=== PATIENT | female | born 2000 | race Caucasian/White ===

== ENCOUNTER 2018-01-09 20:37 | Emergency (ER) | payer OTHER ==
[2018-01-09 21:05] LABS: #Eosinphils 0.1 thou/uL (0.0-0.7); #Lymphocytes 1.8 thou/uL (1.20-3.40); #Monocytes 1.6 thou/uL (0.11-0.59); #Neutrophils 14.6 thou/uL (1.40-6.50); %Basophils 0.1 % (0.0-1.0); %Eosinophils 0.3 % (0.0-10.0); %Lymphocytes 9.9 % (28.0-48.0); %Neutrophils 80.7 % (31.0-61.0); Mean Corpuscular HGB CONC 34.3 g/dL (32.0-36.0); Mean Corpuscular Hemoglobin 29.5 pg (25.0-35.0); Mean Platelet Volume 7.7 fL (7.4-10.4); Platelet Count 246 thou/uL (130-400); RBC Distribution Width 12.1 % (11.5-14.5); Red Blood Cell (RBC) Count 4.41 mill/uL (4.00-5.20); White Blood Cell (WBC) Count 18.1 thou/uL (4.8-10.8)
[2018-01-09 21:17] LABS: BHCG - Serum Negative (NEGATIVE); Pregs Control Background? CLEAR/WHITE (CLR/WHITE); Pregs Control Bar Appear? YES (CONTROL BAR)
[2018-01-09 21:25] LABS: ALT (SGPT) 18 U/L (8-55); AST (SGOT) 14 U/L (5-30); Albumin 4.6 g/dL (3.5-5.0); Alkaline Phosphatase 80 U/L (40-150); Anion Gap 18 mmol/L (10-20); BUN (Urea Nitrogen) 11 mg/dL (8.4-21.0); Bilirubin, Total 0.8 mg/dL (0.2-1.2); Calc. Creatinine Clearance 0 mL/min (70-130); Calcium 10.2 mg/dL (7.8-10.44); Carbon Dioxide 21 mmol/L (22-29); Chloride 101 mmol/L (98-107); Estimated GFR-MDRD 58; Globulin 4.5 g/dL (2.4-3.5); Glucose 92 mg/dL (70-105); Potassium 3.6 mmol/L (3.5-5.1); Protein, Total 9.1 g/dL (6.0-8.3); Sodium 136 mmol/L (136-145)
[2018-01-09 21:28] LABS: Bilirubin Small (Negative); Blood, Urine Large (Negative); Clarity TURBID (Clear); Glucose, Urine (Dipstick) Negative (Negative); Leukocyte Large (Negative); Nitrite Negative (Negative); Protein, Urine (Dipstick) 100 mg/dL (Neg-Trace); Specific Gravity, Urine 1.023 (1.002-1.036); Urobilinogen 0.2 mg/dL (0.2-1.0)
[2018-01-09 21:29] LABS: Bacteria/HPF 1+ HPF (None Seen); Hyaline Casts/LPF 4-6 HYALINE CAST LPF (0-3 Hyaline); Pathc Cast-AUWi Flag 1.04 (0-2.49); RBC/HPF GREATER THAN 50-TNTC HPF (0-3); Squamous Epithelial 0-3 HPF (0-3)
[2018-01-09 21:30] LABS: Yeast-AUWi Flag 35.7 (0-25.0)
[2018-01-09] MEDS ORDERED: cefTRIAXone\\ROCEPHIN 2 GM VIAL ONE (21:56)
[2018-01-09] MEDS ORDERED: Ondansetron HCl/PF 4 MG/2 ML Vial ONE (22:03)
[2018-01-09] MEDS ORDERED: Acetaminophen 500 MG TAB ONE (22:03)
[2018-01-09] MEDS ORDERED: Morphine 4 MG/ML VIAL ONE (22:04)
--- NOTE | 2018-01-09 22:35 | CT ---
ABDOMEN AND PELVIC CT SCAN WITHOUT IV CONTRAST: 01/09/18 HISTORY: 17-year-old female with history of right flank pain and lower abdominal pain and fever intermittently for up to three weeks. Lung bases are clear. The visualized liver, gallbladder, pancreas, spleen, adrenal glands, are unrema rkable as evaluated without IV contrast. There is some minimal fat stranding around the right kidney and upper right ureter. No evidence for renal calculus. No evidence for ureteral calculus. Normal maura earing appendix. There is an approximately 4.3 x 5.3 x 5.1 cm diameter right ovarian/adnexal mass whi ch does not appear to be a simple benign cyst and could represent a solid mass, enlarged right ovary or a complex hemorrhagic cyst. The bladder is nearly empty. IMPRESSION: Minimal fat stranding around the upper ureter and right kidney. The upper right ureter and right kidn ey, nonspecific. This could be related to recent stone passage or could represent findings of acute p yelonephritis. No evidence for an obstructing ureteral calculus. Right ovarian/adnexa mass/enlarged r ight ovary. Further evaluation with ultrasound in this regard is suggested. Normal appearing appendix . POS: FELIX
--- NOTE | 2018-01-09 23:34 | ULT ---
PELVIC ULTRASOUND: 01/09/18 HISTORY: Pelvic pain with nausea and fever. Uterus appears unremarkable. Endometrial stripe appears normal. There is a 4 to 5 cm cyst right ovary . Left ovary shows normal appearing follicles. No free fluid seen. Color doppler and spectral analysis shows blood flow to both ovaries. IMPRESSION: Large right adnexal cyst, probably ovarian. Recommend followup ultrasound to assess resolution. POS: AGW
--- NOTE | 2018-01-12 00:59 | EKG ---
Test Reason : SEPSIS ALERT Blood Pressure : / mmHG Vent. Rate : 115 BPM Atrial Rate : 115 BPM P-R Int : 128 ms QRS Dur : 078 ms QT Int : 328 ms P-R-T Axes : 042 047 003 degrees QTc Int : 453 ms Sinus tachycardia Confirmed by HANG MAC ([id number]), photograph editor ARTEM SOL ([id number]) on 01/12/2018 12:59:24 AM Referred By: Confirmed By:HANG MAC
== END 2018-01-09 23:45 | disposition home or self-care (01) ==
LOC: ERS 20:37
DX: N12 Tubulo-interstitial nephritis, not specified as acute or chronic (principal); N39.0 Urinary tract infection, site not specified; Z79.899 Other long term (current) drug therapy
CPT/HCPCS: 36415; 74176; 76856; 80053; 81003; 81015; 83605; 84703; 85025; 86850; 86900; 86901; 87040; 87077; 87086; 87186; 93005; 96361; 96365; 96374; 96375; J0696; J2270; J2405

== ENCOUNTER 2018-01-10 17:37 | Inpatient (IN) | payer OTHER ==
[2018-01-10] MEDS ORDERED: Acetaminophen 500 MG TAB ONE (17:47)
[2018-01-10 18:20] LABS: Mean Corpuscular HGB CONC 33.4 g/dL (32.0-36.0); Mean Corpuscular Volume 86.6 fl (77.0-87.0); Mean Platelet Volume 7.9 fL (7.4-10.4); Platelet Count 215 thou/uL (130-400); RBC Distribution Width 12.3 % (11.5-14.5); Red Blood Cell (RBC) Count 4.15 mill/uL (4.00-5.20); White Blood Cell (WBC) Count 15.4 thou/uL (4.8-10.8)
[2018-01-10 18:33] LABS: ALT (SGPT) 19 U/L (8-55); AST (SGOT) 17 U/L (5-30); Alkaline Phosphatase 91 U/L (40-150); Anion Gap 14 mmol/L (10-20); BUN (Urea Nitrogen) 8 mg/dL (8.4-21.0); Bilirubin, Total 0.5 mg/dL (0.2-1.2); Calc. Creatinine Clearance 0 mL/min (70-130); Calcium 9.6 mg/dL (7.8-10.44); Carbon Dioxide 19 mmol/L (22-29); Chloride 105 mmol/L (98-107); Estimated GFR-MDRD 75; Glucose 132 mg/dL (70-105); Lipase 9 U/L (8-78); Potassium 3.8 mmol/L (3.5-5.1); Sodium 134 mmol/L (136-145)
[2018-01-10 18:35] LABS: Band 34 % (5-11); Lymphocytes 5 % (28-48); MDiff Complete? YES; Metamyelocyte 1 % (0-0); Monocytes 3 % (0-4); Neutrophil 55 % (31-61); PLT Morphology Comment Appears Adequate; RBC Morphology Normal; Reactive Lymphocytes 1 % (0-10); Vacuoles SLIGHT
[2018-01-10] MEDS ORDERED: cefTRIAXone\\ROCEPHIN 2 GM VIAL ONE (19:09)
[2018-01-10] MEDS ORDERED: Sodium Chloride 0.9% 100 ML ONE (19:09)
[2018-01-10] MEDS ORDERED: Gentamicin Sulfate 330 MG in Sodium Chloride 0.9% 100 ML IVPB SCH (19:30)
--- NOTE | 2018-01-10 19:56 | PDOC.FPRHP ---
- History of Present Illness Chief Complaint: fever History of Present Illness: Patient comes in for evaluation of fever. She was seen in the ED yesterday and diagnosed with pyelonephritis. She received rocephin in the Ed and was sent home on cipro. She was only able to keep one dose of the cipro down because of N /V. She comes back into the ED today because of a fever this afternoon of 104 and persistent back pain. She states the back pain has been getting progressively worse for the past 3-4 weeks, described as a stabbing pain with occassional dull ache radiating to the abdomen. She had a fever of 104 4 days ago and was not seen until yesterday in the ED. She states she has not been able to keep foods down for the past 4 days but is usually able to keep fluids down. She is having burning with urination, no blood in the urine. She has tried tylenol/ibuprofen at home. Associated symptoms: ache all over, headache described as pressure throughout the head, chest heaviness for the last hour or so in the ED, R sided chest pain with deep breath. ED Course: Vanc, rocephin, Gentamicin NS bolus x2 - Allergies/Adverse Reactions Allergies Allergy/AdvReac Type Severity Reaction Status Date / Time amoxicillin Allergy Verified 01/09/18 21:53 codeine Allergy Verified 01/09/18 21:53 - Home Medications Medication Instructions Recorded Confirmed Type Acetaminophen [Tylenol] 650 mg PO Q4HR PRN 01/11/18 01/11/18 History Comments: no home meds - History PMHx: none PSHx: T&A FHx: ? breast cancer in mother Social: no smoking, alcohol, or drugs - Review of Systems General: reports: fever/chills, weight/appetite/sleep changes, night sweats, fatigue Eyes: denies: eye pain, vision changes ENT: denies: nasal congestion, rhinorrhea Respiratory: reports: shortness of breath. denies: cough, congestion Cardiovascular: reports: chest pain. denies: palpitation, edema, orthopnea Gastrointestinal: reports: nausea, vomiting. denies: diarrhea, constipation, abdominal pain, GI bleeding Genitourinary: reports: dysuria. denies: polyuria Skin: denies: rashes, lesions Musculoskeletal: reports: arthritis/arthralgias. denies: pain Neurological: denies: numbness, weakness Psychological: denies: anxiety, depression - Vital signs BP: 104/68-> 83/47 HR: 138-> 106 RR: 22 Tmax: 103.0 Pox: 98% on RA Wt: 81.65 - Physical Exam Constitutional: NAD, awake, alert and oriented, well developed HEENT: normocephalic and atraumatic, PERRLA, EOMI, conjunctiva clear, MMM Neck: supple, FROM Chest: no-tender to palpation Heart: RRR, normal S1/S2, no murmurs/rubs/gallops, pulses present, no edema Lungs: CTAB, no respiratory distress, good air movement Abdomen: soft, non-tender, bowel sounds present, no masses/distention Musculoskeletal: normal structure, normal tone Neurological: no focal deficit, CN II-XII intact Skin: no rash/lesions, capillary refill <2 seconds Heme/Lymphatic: no unusual bruising or bleeding Psychiatric: normal mood and affect FMR H&P: Results - Labs Result Diagrams: 01/10/18 18:01 01/10/18 18:01 Lab results: WBC 15.4 thou/uL (4.8-10.8) H 01/10/18 18:01 Hgb 12.0 g/dL (12.0-16.0) 01/10/18 18: Hct 35.9 % (36.0-47.0) L 01/10/18 18: MCV 86.6 fl (77.0-87.0) 01/10/18 18:01 Plt Count 215 thou/uL (130-400) 01/10/18 18: Band Neuts % (Manual) 34 % (5-11) H 01/10/18 18:01 Sodium 134 mmol/L (136-145) L 01/10/18 18:01 Potassium 3.8 mmol/L (3.5-5.1) 01/10/18 18: Chloride 105 mmol/L (98-107) 01/10/18 18: Carbon Dioxide 19 mmol/L (22-29) L 01/10/18 18: BUN 8 mg/dL (8.4-21.0) L 01/10/18 18: Creatinine 0.96 mg/dL (0.6-1.1) 01/10/18 18:01 Glucose 132 mg/dL (70-105) H 01/10/18 18:01 Lactic Acid 1.4 mmol/L (0.5-2.2) 01/10/18 18:01 Calcium 9.6 mg/dL (7.8-10.44) 01/10/18 18:01 Total Bilirubin 0.5 mg/dL (0.2-1.2) 01/10/18 18:01 AST 17 U/L (5-30) 01/10/18 18:01 ALT 19 U/L (8-55) 01/10/18 18:01 Alkaline Phosphatase 91 U/L (40-150) 01/10/18 18:01 Serum Total Protein 8.0 g/dL (6.0-8.3) 01/10/18 18:01 Albumin 4.0 g/dL (3.5-5.0) 01/10/18 18:01 Lipase 9 U/L (8-78) 01/10/18 18:01 FMR H&P: A/P - Problem List (1) Pyelonephritis Current Visit: Yes Status: Acute Code(s): N12 - TUBULO-INTERSTITIAL NEPHRITIS, NOT SPCF ACUTE OR CHRONIC (2) Sepsis Current Visit: Yes Status: Acute Code(s): A41.9 - SEPSIS, UNSPECIFIED ORGANISM (3) Dehydration Current Visit: Yes Status: Acute Code(s): E86.0 - DEHYDRATION (4) Chest pain Current Visit: Yes Status: Acute Code(s): R07.9 - CHEST PAIN, UNSPECIFIED (5) Ovarian cyst Current Visit: Yes Status: Acute Code(s): N83.209 - UNSPECIFIED OVARIAN CYST , UNSPECIFIED SIDE - Plan # Sepsis 2/2 Pyelonephritis - failed rocephin, cipro 01/09 - CT 01/09 suggests pyelo, no obstruction, no abscess - s/p vanc, rocephin, cipro in Ed 01/10 - NS x2 in ED, NS at 125ml/hr - urine culture from 01/09 grew out e coli - Zosyn -amoxicillin allergy (hives), has taken penicillin w/o issues, discussed w/ patient # Dehydration - Cr .9->1.19 - likely 2/2 dehydration, monitor, fluids # Chest pain - new onset - ck-mb, trop # Nausea - zofran # Ovarian Cyst - noted on CT, US - f/u outpatient # Code - full # PPx - scd FMR H&P: Upper Level - Pertinent history 17F with history of likely pyelonephritis dx yesterday presents today for continued symptoms. She had nausea and vomiting, not tolerating PO cipro. She returned to ER after finding a temp of 104F and back pain at home. She stated the back pain has been going on for 3-4 week, began having fever 4 days ago, decrease PO tolerance. Tried tylenol and ibuprofen for relief. Associated with body ache, headache, right sided chest pain that started in the ED today, dysuria. Specifically denies hematuria. In ER, received vanc, rocephin, gentamicin, 2L NS. - Pertinent findings Vitals: BP 104/68> 83/47, HR 138 > 106, Resp 22, Tmax 103 F, O2 98% on RA, Wt. 81.65 kg Gen: Awake, alert, oriented HEENT: Normocephalic, PERRLA, conjunctiva clear, MMM, neck supple CV: RRR with no apparent m/g/r Abd: Soft, nontender, normoactive MSK: Normal structure, tone Neurological: Grossly orientedx3, no focal deficit Skin: no obvious rash - Plan Date/Time: 01/10/181954 I, [Pawan Mercado], have evaluated this patient and agree with findings/plan as outlined by corporate strategy intern resident. Pertinent changes/additions are listed here. 1. Sepsis 2/2 to pyelonephritis - Culture grew out presumed e.coli. Plan to start on zosyn, follow culture, adjust as needede - Gave patient 2nd fluid bolus, place on maintaince fluid due to not tolerating PO. Zofran as needed along with fluid bolus. 2. CHRISTINE - Elevated Cr from yesterday, likely 2/2 to dehydration, - Bun/Cr ratio 10. Consider ATN versus prerenal dehydration. IV fluid for treatment 3. CP - Atypical, new onset, occurring at rest and not with exertion - Obtain cardiac enzyme, EKG 4. Ovarian Cyst - Noted on CT/US - May be source of nausea/abd discomfort. - Symptomatically manage, recommend outpatient follow up for resolution 5. Full code, SCD
[2018-01-10 20:32] LABS: Bilirubin Negative (Negative); Blood, Urine Large (Negative); Clarity CLEAR (Clear); Glucose, Urine (Dipstick) Negative (Negative); Leukocyte Trace (Negative); Nitrite Negative (Negative); Protein, Urine (Dipstick) 100 mg/dL (Neg-Trace); Specific Gravity, Urine 1.012 (1.002-1.036); pH, Urine 6.5 (5.0-9.0)
[2018-01-10 20:33] LABS: Pregnancy Test - Urine (BHCG) Negative (Negative); Pregu Control Background? CLEAR/WHITE (CLR/WHITE); Pregu Control Bar Appear? YES (CONTROL BAR); Specific Gravity 1.012 (1.002-1.036)
[2018-01-10 20:34] LABS: Bacteria/HPF None Seen HPF (None Seen); Hyaline Casts/LPF 0-3 HYALINE CAST LPF (0-3 Hyaline); Pathc Cast-AUWi Flag 0.29 (0-2.49); RBC/HPF 21-50 HPF (0-3); Squamous Epithelial 0-3 HPF (0-3)
[2018-01-10] MEDS ORDERED: HYDROcodone/Acetaminophen 5/325 mg Tablet PO PRN (21:57)
[2018-01-10] MEDS ORDERED: Ondansetron HCl/PF 4 MG/2 ML Vial IVP PRN (21:57)
[2018-01-10 22:39] LABS: CKMB 0.3 ng/mL (0-6.6); Troponin I Less than 0.010 ng/mL (< 0.028)
[2018-01-10] MEDS ORDERED: diphenhydrAMINE 25 MG in Sodium Chloride 0.9% 50 ML IVPB PRN (23:07)
[2018-01-10] MEDS: Acetaminophen 325 MG TAB PO PRN (23:54)
[2018-01-10] MEDS: Sodium Chloride 0.9% 1,000 ML IV SCH (23:55)
[2018-01-11 00:13] VITALS: BMI 26.2
[2018-01-11] MEDS: Piperacillin/Tazobactam 3.375 GM in Sodium Chloride 0.9% 100 ML IVPB SCH ×5 (00:43→23:45)
[2018-01-11] MEDS: Ibuprofen 600 MG TAB PO PRN ×3 (02:29→23:46)
[2018-01-11] MEDS: Loperamide HCl 2 MG CAP PO PRN ×2 (02:29→11:51)
[2018-01-11 06:07] LABS: Anion Gap 8 mmol/L (10-20); BUN (Urea Nitrogen) 6 mg/dL (8.4-21.0); Calc. Creatinine Clearance 146 mL/min (70-130); Calcium 8.6 mg/dL (7.8-10.44); Carbon Dioxide 20 mmol/L (22-29); Chloride 114 mmol/L (98-107); Estimated GFR-MDRD Greater than 90; Glucose 118 mg/dL (70-105); Potassium 3.4 mmol/L (3.5-5.1); Sodium 139 mmol/L (136-145)
[2018-01-11 06:27] LABS: Band 13 % (5-11); Eosinophils 1 % (0-10); Hemoglobin 9.2 g/dL (12.0-16.0); Lymphocytes 17 % (28-48); MDiff Complete? YES; Mean Corpuscular HGB CONC 33.4 g/dL (32.0-36.0); Mean Corpuscular Hemoglobin 28.9 pg (25.0-35.0); Mean Corpuscular Volume 86.8 fl (77.0-87.0); Mean Platelet Volume 8.1 fL (7.4-10.4); Monocytes 13 % (0-4); Neutrophil 56 % (31-61); PLT Morphology Comment Appears Adequate; Platelet Count 170 thou/uL (130-400); RBC Distribution Width 12.3 % (11.5-14.5); Red Blood Cell (RBC) Count 3.16 mill/uL (4.00-5.20); White Blood Cell (WBC) Count 11.9 thou/uL (4.8-10.8)
[2018-01-11] MEDS: Acetaminophen 325 MG TAB PO PRN ×4 (07:05→23:46)
[2018-01-11] MEDS: Sodium Chloride 0.9% 1,000 ML IV SCH ×2 (07:08→15:01)
[2018-01-11] MEDS ORDERED: Potassium Chloride 20 MEQ TAB PO SCH (11:45)
[2018-01-12 06:10] LABS: #Basophils 0.1 thou/uL (0.0-0.2); #Eosinphils 0.4 thou/uL (0.0-0.7); #Lymphocytes 2.5 thou/uL (1.20-3.40); #Neutrophils 5.3 thou/uL (1.40-6.50); %Basophils 0.5 % (0.0-1.0); %Eosinophils 4.1 % (0.0-10.0); %Lymphocytes 26.8 % (28.0-48.0); %Monocytes 10.9 % (0.0-4.0); %Neutrophils 57.6 % (31.0-61.0); Hemoglobin 9.1 g/dL (12.0-16.0); Mean Corpuscular HGB CONC 34.3 g/dL (32.0-36.0); Mean Corpuscular Hemoglobin 29.8 pg (25.0-35.0); Mean Corpuscular Volume 86.9 fl (77.0-87.0); Mean Platelet Volume 7.8 fL (7.4-10.4); Platelet Count 217 thou/uL (130-400); RBC Distribution Width 12.5 % (11.5-14.5); Red Blood Cell (RBC) Count 3.04 mill/uL (4.00-5.20); White Blood Cell (WBC) Count 9.3 thou/uL (4.8-10.8)
[2018-01-12 06:17] LABS: Anion Gap 11 mmol/L (10-20); BUN (Urea Nitrogen) 8 mg/dL (8.4-21.0); Calc. Creatinine Clearance 150 mL/min (70-130); Calcium 9.1 mg/dL (7.8-10.44); Carbon Dioxide 21 mmol/L (22-29); Chloride 114 mmol/L (98-107); Estimated GFR-MDRD Greater than 90; Glucose 97 mg/dL (70-105); Potassium 3.8 mmol/L (3.5-5.1); Sodium 142 mmol/L (136-145)
[2018-01-12] MEDS: Piperacillin/Tazobactam 3.375 GM in Sodium Chloride 0.9% 100 ML IVPB SCH (06:19)
[2018-01-12] MEDS: Acetaminophen 325 MG TAB PO PRN (06:20)
[2018-01-12] MEDS: Ibuprofen 600 MG TAB PO PRN (06:20)
--- NOTE | 2018-01-12 07:34 | PDOC.FM ---
- Subjective Subjective: Patient reports that her pain has improved significantly since yesterday morning. She states that she can get up and walk around now and the pain is better. She reports it is mostly localized to her R flank. She denies any dysuria. She denies f/c. She is tolerating PO and denies any further N/V in the past day. - Objective MAR Reviewed: Yes Vital Signs & Weight: Vital Signs (12 hours) Temp Pulse Resp BP Pulse Ox 01/12/18 07:21 98.2 F 67 18 114/73 99 01/12/18 03:53 97.4 F L 73 16 105/70 99 01/12/18 00:44 98.9 F 80 18 112/70 100 01/11/18 20:35 99.1 F 86 20 100 I&O: 01/11/18 01/12/18 01/13/18 06:59 06:59 06:59 Intake Total 1750 600 Balance 1750 600 Result Diagrams: 01/12/18 05:56 01/12/18 05:56 <Gloria Vargas - Last Filed: 01/12/18 07:36> - Objective Vital Signs & Weight: Vital Signs (12 hours) Temp Pulse Resp BP Pulse Ox 01/12/18 11:08 98.4 F 65 14 122/77 95 01/12/18 08:20 98.2 F 67 18 01/12/18 07:21 98.2 F 67 18 114/73 99 01/12/18 03:53 97.4 F L 73 16 105/70 99 01/12/18 00:44 98.9 F 80 18 112/70 100 I&O: 01/11/18 01/12/18 01/13/18 06:59 06:59 06:59 Intake Total 1750 600 Balance 1750 600 Result Diagrams: 01/12/18 05:56 01/12/18 05:56 <Ovidio Russo - Last Filed: 01/12/18 11:11> Phys Exam - Physical Examination Constitutional: NAD HEENT: moist MMs Respiratory: no wheezing, no rales, no rhonchi, clear to auscultation bilateral Cardiovascular: RRR, no significant murmur, no rub Gastrointestinal: soft, no distention, positive bowel sounds mildly tender to palpation in Suprapubic region, R CVA tenderness Musculoskeletal: no edema, pulses present Neurological: non-focal, moves all 4 limbs Psychiatric: normal affect, A&O x 3 Skin: normal turgor, cap refill <2 seconds <Gloria Vargas - Last Filed: 01/12/18 07:36> Dx/Plan (1) Sepsis Code(s): A41.9 - SEPSIS, UNSPECIFIED ORGANISM Status: Resolved QualifierTitle: Sepsis type: Escherichia coli Qualified Code(s): A41.51 - Sepsis due to Escherichia coli [E. coli] (2) Pyelonephritis Code(s): N12 - TUBULO-INTERSTITIAL NEPHRITIS, NOT SPCF ACUTE OR CHRONIC Status: Acute (3) CHRISTINE (acute kidney injury) Code(s): N17.9 - ACUTE KIDNEY FAILURE, UNSPECIFIED Status: Resolved (4) Dehydration Code(s): E86.0 - DEHYDRATION Status: Acute (5) Ovarian cyst Code(s): N83.209 - UNSPECIFIED OVARIAN CYST, UNSPECIFIED SIDE Status: Acute QualifierTitle: Laterality: right Qualified Code(s): N83.201 - Unspecified ovarian cyst, right side - Plan Plan: Sepsis 2/2 Pyelonephritis The patient failed outpatient therapy, but was not able to tolerate a full course due to N/V. She was given a dose of Rocephin in the ED followed by Alex on 01/09. She returned with worsened fevers, pain, N/V. CT 01/09 suggests pyelo, no obstruction, no abscess. s/p vanc, rocephin, gent, 2L NS in ED on 01/10. Urine culture from 01/09 grew out E. coli that was pansensitive. -Zosyn (the patient has an amoxicillin allergy (hives), has taken penicillin w/ o issues, discussed w/ patient) -Transition to PO abx today -Ucx from this hospitalization show NG at 12 hours, f/u on final results -Bcx show NGTD, f/u on final results CHRISTINE, resolved Patient's Cr was initially elevated, but has since trended down after fluids -Monitor Nausea -Zofran prn Ovarian Cyst -noted on CT, US -f/u outpatient <Gloria Vargas - Last Filed: 01/12/18 07:36> Attending Addendum - Attending Addendum Date/Time: 01/12/18 1110 I personally evaluated the patient and discussed the management with Dr. Vargas I agree with the History, Examination, Assessment and Plan documented above with any addition or exceptions noted below. The patient was treated for Pyelonephritis with IV abx and IV fluids. Will switch to oral levaquin today and discharge home with follow-up with PCP. The patient is pain controlled. <Ovidio Russo - Last Filed: 01/12/18 11:11>
[2018-01-12] MEDS ORDERED: levETIRAcetam 500 MG TAB PO SCH ×2 (11:00→21:00)
[2018-01-12 11:09] VITALS: BP 122/77; TEMP 98.4
--- NOTE | 2018-01-13 19:47 | DIS-2 ---
DATE OF ADMISSION: 01/10/2018 DATE OF DISCHARGE: 01/12/2018 ADMITTING RESIDENT: Tyson Liz MD DISCHARGE RESIDENT: Gloria Vargas MD DISCHARGE ATTENDING: Ovidio Russo MD CONSULTS: None. PROCEDURES: None. PRIMARY DIAGNOSES: 1. Sepsis. 2. Right-sided pyelonephritis. 3. Acute kidney injury. 4. Dehydration. 5. Right ovarian cyst. DISCHARGE MEDICATIONS: 1. Levofloxacin 750 mg p.o. daily for 7 days. 2. Zofran 4 mg p.o. q.6 hours p.r.n. for nausea, vomiting, dispense #30. 3. Tylenol 650 mg p.o. q.4 hour p.r.n. for fever or pain DISCONTINUED MEDICATIONS: None. HISTORY OF PRESENT ILLNESS AND HOSPITAL COURSE: This is a 17-year-old female who presented to the ED for the second day in a row after coming on 01/09/2018 for continued nausea, vomiting, abdominal pain, flank pain. The patient had fever up to 104. The patient had been seen in the prior day in the ED and was diagnosed with pyelonephritis on CT scan. The patient was given a dose of Rocephin at that time and discharged home on Cipro. However, the patient was unable to keep the Cipro down due to nausea and vomiting and continued to have persistent fevers, so she returned to the ED the next day. Her urine culture from her first ER visit had grown out E. coli that was pansensitive. The patient was treated initially with IV fluids and Zosyn after receiving one dose of Rocephin in the ED. The patient had initially white count of 15.4 with 34% bands and this trended down throughout her hospitalization, white count 11.9 with 13% bands and then on the day of discharge, her white count was normal. The patient never had an elevated lactic acid. Her lactic acid was 1.4 on admission. She did initially have an acute kidney injury with a creatinine of 0.96 and a GFR of 75, however, this resolved with fluids. Her second urine culture did not grow anything at 36 hours. The patient remained afebrile after being admitted to the hospital and her last fever was in the emergency room and it was 103.0. The patient's nausea and vomiting was controlled with Zofran and her pain was controlled. She was able to tolerate a diet and symptomatically improved significantly by the time of discharge. The patient was discharged home on 7 days of Levaquin. DISPOSITION: Stable. DISCHARGE INSTRUCTIONS: 1. Location: Home. 2. Diet: Regular. 3. Activity: As tolerated. 4. Followup: Follow up with PCP within 7 days. BRADEN
== END 2018-01-12 12:28 | disposition home or self-care (01) | DRG 872 ==
LOC: ERS 17:37 → SURG A 21:49
PROVIDERS: ADMIT Family Medicine; ATTEND Family Medicine
DX: A41.51 Sepsis due to Escherichia coli [E. coli] (principal); N17.9 Acute kidney failure, unspecified; N10 Acute pyelonephritis; E86.0 Dehydration; N83.201 Unspecified ovarian cyst, right side; R07.89 Other chest pain; Z88.1 Allergy status to other antibiotic agents
CPT/HCPCS: 36415; 74176; 76856; 80048; 80053; 81003; 81015; 81025; 82553; 83605; 83690; 84484; 84703; 85025; 86850; 86900; 86901; 87040; 87077; 87086; 87186; 93005; 96361; 96365; 96366; 96368; 96374; 96375; A4216; J0696; J1580; J2270; J2405; J2543; J3370; J7050